=== PATIENT | male | born 1975 | race Caucasian/White ===

== ENCOUNTER 2019-03-16 17:56 | Emergency (ER) | payer OTHER ==
[~2019-03-16] VITALS: Ht 170.2 cm; Wt 75.7 kg
[2019-03-16] MEDS ORDERED: ADERAL (18:12)
== END 2019-03-16 22:55 | disposition home or self-care (01) ==
LOC: ER 17:56
DX: R31.0 Gross hematuria (principal); N39.0 Urinary tract infection, site not specified; R10.31 Right lower quadrant pain; N28.89 Other specified disorders of kidney and ureter